=== PATIENT | female | born 1995 | race Caucasian/White ===

== ENCOUNTER 2017-06-07 02:00 | Emergency (ER) | payer BC ==
[2017-06-07] MEDS ORDERED: Ondansetron ODT 4 MG TAB ONE (03:27)
== END 2017-06-07 04:11 | disposition home or self-care (01) ==
LOC: ERS 02:00
DX: F10.129 Alcohol abuse with intoxication, unspecified (principal); E03.9 Hypothyroidism, unspecified; F41.9 Anxiety disorder, unspecified; F31.9 Bipolar disorder, unspecified
CPT/HCPCS: 99283; Q0162